=== PATIENT | female | born 1975 | race Hispanic/Latino ===

== ENCOUNTER → 2017-10-07 | Outpatient (CLI) | payer OTHER | LOC: M RAD 16:30 | DX: Z12.31 Encounter for screening mammogram for malignant neoplasm of breast (principal); Z12.4 Encounter for screening for malignant neoplasm of cervix ==

== ENCOUNTER 2017-12-16 07:44 | Day surgery (SDC) | payer OTHER ==
[2017-12-16] MEDS: NS 1,000 ML IV (07:52)
[2017-12-16] MEDS ORDERED: fentaNYL 100 MCG/2 ML INJECTION (J3010) As Ordered (08:54)
[2017-12-16] MEDS ORDERED: LIDOCAINE 2% INJ 100 MG/5 ML SDV (FOR ANES.) As Ordered (08:54)
[2017-12-16] MEDS ORDERED: PROPOFOL 200 MG/20 ML VIAL As Ordered (08:54)
== END 2017-12-16 10:26 | disposition home or self-care (01) ==
LOC: M OPP 07:44
DX: K31.7 Polyp of stomach and duodenum (principal); K21.9 Gastro-esophageal reflux disease without esophagitis; E55.9 Vitamin D deficiency, unspecified; Z79.899 Other long term (current) drug therapy; Z88.8 Allergy status to other drugs, medicaments and biological substances; Z86.2 Personal history of diseases of the blood and blood-forming organs and certain disorders involving the immune mechanism
CPT/HCPCS: 43251